=== PATIENT | male | born 1970 | race Caucasian/White ===

== ENCOUNTER 2017-01-29 11:28 | Emergency (ER) | payer OTHER ==
[~2017-01-29 11:28] MED LIST: ALBUTEROL IN200 PUFF INH; CELEXA20 MG PO; CLARITIN10 MG PO; HYDROCODON-ACE1 EAC2 PO; KETOROLAC TROME10 MG PO; NEURONTIN800 MG PO; NICODERM 21MG PA1 EA TD; PROTONIX40 MG PO; REQUIP1 MG PO; ZANTAC150 MG PO; ZESTRIL10 MG PO; ZOCOR40 MG PO
== END 2017-01-29 12:47 | disposition home or self-care (01) ==
LOC: ER 11:28
DX: M19.90 Unspecified osteoarthritis, unspecified site (principal); E78.5 Hyperlipidemia, unspecified; I10 Essential (primary) hypertension; F17.210 Nicotine dependence, cigarettes, uncomplicated; Z79.899 Other long term (current) drug therapy
CPT/HCPCS: 96372; 99282-25